=== PATIENT | male | born 1955 | race African-American/Black ===

== ENCOUNTER 2021-05-24 12:36 | Emergency (ER) | payer OTHER ==
--- NOTE | 2021-05-24 13:40 | ER ---
Nurse's Notes [facility] Name: Thaddeus Rivers Age: 66 yrs Sex: Male : 1955 Arrival Date: 05/24/2021 Time: 12:40 Bed 10 Private MD: Diagnosis: Rash and other nonspecific skin eruption Presentation: 05/24 12:50 Chief complaint: Patient states: Rash to both arms for 2 weeks. + itching, spread to ll1 whole body now. No fever. Coronavirus screen: Vaccine status: Patient reports receiving the 2nd dose of the covid vaccine. Client denies travel out of the [place] in the last 14 days. At this time, the client does not indicate any symptoms associated with coronavirus-19. Ebola Screen: Patient denies travel to an Ebola-affected area in the 21 days before illness onset. Initial Sepsis Screen: Does the patient meet any 2 criteria? No. Patient's initial sepsis screen is negative. Does the patient have a suspected source of infection? Yes: Skin breakdown/wound. Risk Assessment: Do you want to hurt yourself or someone else? Patient reports no desire to harm self or others. Onset of symptoms was May 11, 2021. 12:50 Method Of Arrival: Ambulatory ll1 12:50 Acuity: MAXIM 4 ll1 Historical: - Allergies: 12:50 No Known Allergies; ll1 - PMHx: 12:52 Hypertensive disorder; Diabetes mellitus; ll1 - PSHx: 12:52 None; ll1 - Immunization history:: Adult Immunizations up to date, Client reports receiving the 2nd dose of the Covid vaccine. - Social history:: Smoking status: Patient denies any tobacco usage or history of. Screenin:15 Abuse screen: Denies threats or abuse. Nutritional screening: No deficits noted. jg9 Tuberculosis screening: No symptoms or risk factors identified. Fall Risk None identified. Assessment: 13:14 General: Appears in no apparent distress. well groomed, Behavior is calm, cooperative. jg9 Pain: Complains of pain in right arm and left arm Pain does not radiate. Pain currently is 3 out of 10 on a pain scale. Quality of pain is described as burning. Derm: Rash noted that is itchy, raised. Vital Signs: 12:50 Resp 18; Weight 91.63 kg; Height 5 ft. 9 in. (175.26 cm); Pain 0/10; ll1 12:52 BP 143 / 81; Pulse 56; Temp 97.9; Pulse Ox 99% ; ll1 13:21 BP 138 / 78; Pulse 60; Resp 17; Pulse Ox 100% ; jg9 14:03 BP 139 / 70; Pulse 66; Resp 18; Temp 97.8; Pulse Ox 100% on R/A; Pain 3/10; jg9 12:50 Body Mass Index 29.83 (91.63 kg, 175.26 cm) 1 ED Course: 12:40 Patient arrived in ED. mr 12:50 Arm band placed on Patient placed in an exam room, on a stretcher. 1 12:52 Triage completed. 1 12:54 Siva Cochran PA is PHCP. [facility] 12:54 Alex Tejada MD is Attending Physician. [facility] 13:15 Call light in reach. Side rails up X 1. jg9 13:21 No provider procedures requiring assistance completed. jg9 13:21 Patient did not have IV access during this emergency room visit. j9 13:39 Kojo Rowley MD is Referral Physician. [facility] Administered Medications: No medications were administered Outcome: 13:40 Discharge ordered by . [facility] 14:03 Discharged to home ambulatory. jg9 14:03 Condition: good 14:03 Discharge instructions given to patient, Instructed on discharge instructions, follow up and referral plans. Demonstrated understanding of instructions, follow-up care, medications, Prescriptions given X 3. 14:04 Patient left the ED. jg9 Signatures: Siva Cochran PA PA jmm Rivera, Mary mr Lewis, Lynsay, RN RN 1 Flores Montague jg9
--- NOTE | 2021-05-24 13:40 | EDPHYS ---
Physician Documentation [facility] Name: Thaddeus Rivers Age: 66 yrs Sex: Male : 1955 Arrival Date: 05/24/2021 Time: 12:40 Bed 10 Private MD: ED Physician Alex Tejada HPI: 05/24 13:34 This 66 yrs old Black Male presents to ER via Ambulatory with complaints of Skin jmm Problem. 13:34 The patient's rash thought to be caused by an unknown cause. The rash is located on the jmm right arm, left arm, right leg and left leg. Onset: The symptoms/episode began/occurred gradually, 2 week(s) ago. Associated signs and symptoms: Pertinent positives: itching, Pertinent negatives: burning sensation, difficulty breathing, fever, swelling of lips, swelling of throat, swelling of tongue, vomiting, wheezing. The patient has not experienced similar symptoms in the past. States this occurred after performing yard work. Historical: - Allergies: 12:50 No Known Allergies; ll1 - PMHx: 12:52 Hypertensive disorder; Diabetes mellitus; ll1 - PSHx: 12:52 None; ll1 - Immunization history:: Adult Immunizations up to date, Client reports receiving the 2nd dose of the Covid vaccine. - Social history:: Smoking status: Patient denies any tobacco usage or history of. ROS: 13:34 Constitutional: Negative for fever, chills, and weight loss, Cardiovascular: Negative jmm for chest pain, palpitations, and edema, Respiratory: Negative for shortness of breath, cough, wheezing, and pleuritic chest pain. 13:34 Skin: Positive for rash. 13:34 All other systems are negative. Exam: 13:34 Constitutional: This is a well developed, well nourished patient who is awake, alert, jmm and in no acute distress. Head/Face: atraumatic. Eyes: EOMI, no conjunctival erythema appreciated ENT: Moist Mucus Membranes Neck: Trachea midline, Supple Chest/axilla: Normal chest wall appearance and motion. Cardiovascular: Regular rate and rhythm. No edema appreciated Respiratory: Normal respirations, no respiratory distress appreciated Abdomen/GI: Non distended, soft Back: Normal ROM 13:34 Skin: on the right arm, left arm, right leg and left leg. 13:34 Neuro: Orientation: is normal, Mentation: is normal, Memory: is normal. 13:34 Psych: Behavior/mood is pleasant, cooperative. Vital Signs: 12:50 Resp 18; Weight 91.63 kg; Height 5 ft. 9 in. (175.26 cm); Pain 0/10; ll1 12:52 BP 143 / 81; Pulse 56; Temp 97.9; Pulse Ox 99% ; ll1 13:21 BP 138 / 78; Pulse 60; Resp 17; Pulse Ox 100% ; jg9 14:03 BP 139 / 70; Pulse 66; Resp 18; Temp 97.8; Pulse Ox 100% on R/A; Pain 3/10; jg9 12:50 Body Mass Index 29.83 (91.63 kg, 175.26 cm) ll1 MDM: 13:34 Patient medically screened. [facility] 13:39 Data reviewed: vital signs, nurses notes. Counseling: I had a detailed discussion with michi the patient and/or guardian regarding: the historical points, exam findings, and any diagnostic results supporting the discharge/admit diagnosis, the need for outpatient follow up, to return to the emergency department if symptoms worsen or persist or if there are any questions or concerns that arise at home. Administered Medications: No medications were administered Disposition: 05/25 07:04 Co-signature as Attending Physician, Alex Tejada MD I agree with the assessment and rn plan of care. Attestation: The patient's history, exam findings, diagnostics, and a summary of any interventions or procedures was reviewed in detail with Siva PRUITT. Disposition Summary: 05/24/21 13:40 Discharge Ordered Location: Home [facility] Condition: Stable [facility] Diagnosis - Rash and other nonspecific skin eruption [facility] Followup: [facility] - With: Kojo Rowley MD - When: As needed - Reason: Recheck today's complaints, Continuance of care, Re-evaluation by your physician Discharge Instructions: - Discharge Summary Sheet [facility] - Rash, Adult m Forms: - Medication Reconciliation Form [facility] - Thank You Letter [facility] - Antibiotic Education [facility] - Prescription Opioid Use [facility] Prescriptions: - Elimite 5 % Topical Cream - apply 1 application by TOPICAL route one time Wash after 12 hours.; 60 gram; [facility] Refills: 0, Product Selection Permitted - Hydroxyzine HCl 25 mg Oral Tablet - take 1 tablet by ORAL route every 6 hours As needed; 30 tablet; Refills: 0, michim Product Selection Permitted - Triamcinolone Acetonide 0.1 % Topical Ointment - apply 1 application by TOPICAL route every 12 hours As needed; 1 tube; Refills: kathryn 0, Product Selection Permitted Signatures: Siva Cochran PA PA jmm Nieto, Roman, MD MD rn Wilmer Cheng RN RN ll1
[2021-05-24 14:10] VITALS: O2SAT 100
[2021-05-24 14:12] VITALS: BP 139/70; TEMP 97.8
== END 2021-05-24 14:04 | disposition home or self-care (01) ==
LOC: ER 12:36
DX: R21 Rash and other nonspecific skin eruption (principal); I10 Essential (primary) hypertension; E11.9 Type 2 diabetes mellitus without complications
CPT/HCPCS: 99282

== ENCOUNTER 2021-10-30 16:18 | Emergency (ER) | payer OTHER ==
--- OUTSIDE RECORDS SUMMARY | 2021-10-30 16:28 | XMS REPORT | Continuity of Care Document ---
:1955 Author Organization [facility] t Address [address] [place] [address] [address] [place] [address] Care Team Providers Name Role Phone VASILIY Attending Clinician Unavailable Problems This patient has no known problems. Allergies, Adverse Reactions, Alerts This patient has no known allergies or adverse reactions. Medications This patient has no known medications. Procedures This patient has no known procedures. Encounters Start End Encounter Admission Attending Care Care Encounter Source Date/Time Date/Time Type Type Clinicians Facility Department ID 2021-07-17 Outpatient VASILIY [facility] [id number] NPI:[id number] 14:02:04 [facility] [id number] 2021-07-10 2021-07-10 ambulatory [facility] [id number] NPI:[id number] 00:00:00 00:00:00 [id number] 2021-04-09 2021-04-09 Outpatient [facility] [id number] NPI:[id number] 00:00:00 00:00:00 [id number] Results This patient has no known results.
--- NOTE | 2021-10-30 16:32 | EDPHYS ---
Physician Documentation [facility] Name: Thaddeus Rivers Age: 66 yrs Sex: Male : 1955 Arrival Date: 10/30/2021 Time: 16:20 Bed 10 Private MD: ED Physician Roderick Moody HPI: 10/30 16:33 This 66 yrs old Black Male presents to ER via Ambulatory with complaints of Rash. ms3 16:33 The patient's rash thought to be caused by Eczema. The rash is located on the body ms3 diffusely. The rash can be described as papular. Onset: The symptoms/episode began/occurred 2 day(s) ago. Associated signs and symptoms: Pertinent positives: itching, Pertinent negatives: Pain. Severity of symptoms: Pain is currently a 0 / 10. Treatment given at home: None. Historical: - Allergies: 16:26 No Known Allergies; jl7 - PMHx: 16:26 diabetes mellitus; Hypertensive disorder; jl7 - Immunization history:: Adult Immunizations unknown. - Social history:: Smoking status: unknown. ROS: 16:33 Constitutional: Negative for fever, and chills. Neck: Negative for injury, pain, and ms3 swelling, Cardiovascular: Negative for chest pain, and palpitations. Respiratory: Negative for shortness of breath, cough, wheezing, and pleuritic chest pain, Abdomen/GI: Negative for abdominal pain, nausea, vomiting, diarrhea, and constipation, MS/Extremity: Negative for injury and deformity, Neuro: Negative for headache, weakness, numbness, tingling. 16:33 Skin: Positive for rash, diffusely. Exam: 16:33 Constitutional: This is a well developed, well nourished patient who is awake, alert, ms3 and in no acute distress. Head/Face: Normocephalic, atraumatic. Neck: Trachea midline, no cervical lymphadenopathy. Supple, full range of motion without nuchal rigidity, or vertebral point tenderness. No Meningismus. Chest/axilla: Normal chest wall appearance and motion. Nontender with no deformity. Cardiovascular: Regular rate and rhythm with a normal S1 and S2. No gallops, murmurs, or rubs. Normal PMI, no JVD. No pulse deficits. Respiratory: Lungs have equal breath sounds bilaterally, clear to auscultation and percussion. No rales, rhonchi or wheezes noted. No increased work of breathing, no retractions or nasal flaring. Abdomen/GI: Soft, non-tender, with normal bowel sounds. No distension or tympany. No guarding or rebound. No evidence of tenderness throughout. Psych: Awake, alert, with orientation to person, place and time. Behavior, mood, and affect are within normal limits. 16:33 Skin: rash a moderate rash is noted, rash can be described as Micropapular. Vital Signs: 16:25 BP 143 / 104; Pulse 85; Resp 17; Temp 98.7; Pulse Ox 100% ; jl7 16:29 BP 139 / 99; Pulse 86; Resp 18; Pulse Ox 100% on R/A; Pain 6/10; ld1 MDM: 16:22 Patient medically screened. ms3 16:33 Data reviewed: vital signs, nurses notes. Data interpreted: Pulse oximetry: on room air ms3 is 100 %. Interpretation: normal. Counseling: I had a detailed discussion with the patient and/or guardian regarding: the historical points, exam findings, and any diagnostic results supporting the discharge/admit diagnosis, the need for outpatient follow up. ED course: Discussed physical exam findings with patient. Patient to follow-up with in 2 to 3 days. Patient understands and agrees with plan. All questions were answered. Return precautions discussed include worsening symptoms, or any other concerns. On reevaluation patient symptoms improved, patient is alert and oriented x4, no apparent distress, nontoxic, ambulatory in emergency department, tolerating p.o. . Administered Medications: 16:33 Drug: predniSONE 60 mg Route: PO; ld1 Disposition Summary: 10/30/21 16:32 Discharge Ordered Location: Home ms3 Condition: Stable ms3 Diagnosis - Rash and other nonspecific skin eruption ms3 Followup: ms3 - With: Gideon Hunter MD - When: 2 - 3 days - Reason: Re-evaluation by your physician Discharge Instructions: - Discharge Summary Sheet ms3 - Rash, Adult ms3 Forms: - Medication Reconciliation Form ms3 - Thank You Letter ms3 - Antibiotic Education ms3 - Prescription Opioid Use ms3 Prescriptions: - Prednisone 20 mg Oral Tablet - take 2 tablets by ORAL route once daily for 5 days; 10 tablet; Refills: 0, ms3 Product Selection Permitted Signatures: Donato Ramirez RN RN jl7 Roderick Moody, DO VILA ms3 Shaylee Stevens, RN RN ld1
--- NOTE | 2021-10-30 16:32 | ER ---
Nurse's Notes [facility] Name: Thaddeus Rivers Age: 66 yrs Sex: Male : 1955 Arrival Date: 10/30/2021 Time: 16:20 Bed 10 Private MD: Diagnosis: Rash and other nonspecific skin eruption Presentation: 10/30 16:25 Chief complaint: Patient states: Rash to face and bilateral wrist x 2 days. Coronavirus jl7 screen: At this time, the client does not indicate any symptoms associated with coronavirus-19. Ebola Screen: No symptoms or risks identified at this time. Initial Sepsis Screen: Does the patient meet any 2 criteria? No. Patient's initial sepsis screen is negative. Does the patient have a suspected source of infection? No. Patient's initial sepsis screen is negative. Risk Assessment: Do you want to hurt yourself or someone else? Patient reports no desire to harm self or others. Onset of symptoms was October 28, 2021. 16:25 Method Of Arrival: Ambulatory jl7 16:25 Acuity: MAXIM 4 jl7 Triage Assessment: 16:26 General: Appears in no apparent distress. uncomfortable, Behavior is calm, cooperative, jl7 appropriate for age. Pain: Denies pain. Historical: - Allergies: 16:26 No Known Allergies; jl7 - PMHx: 16:26 diabetes mellitus; Hypertensive disorder; jl7 - Immunization history:: Adult Immunizations unknown. - Social history:: Smoking status: unknown. Screenin:29 Abuse screen: Denies threats or abuse. Denies injuries from another. Nutritional ld1 screening: No deficits noted. Tuberculosis screening: No symptoms or risk factors identified. Fall Risk None identified. Sepsis Screening:. Assessment: 16:29 General: Appears in no apparent distress. comfortable, Behavior is calm, cooperative, ld1 appropriate for age. Pain: Complains of pain in face, right hand and left hand Pain does not radiate. Pain currently is 6 out of 10 on a pain scale. Neuro: Level of Consciousness is awake, alert, obeys commands, Oriented to person, place, time, situation. Cardiovascular: Capillary refill < 3 seconds Patient's skin is warm and dry. Respiratory: Airway is patent Respiratory effort is even, unlabored. GI: Abdomen is flat, non-distended. : No signs and/or symptoms were reported regarding the genitourinary system. EENT: No signs and/or symptoms were reported regarding the EENT system. Derm: Rash noted that is red, on face, right hand and left hand. Musculoskeletal: No signs and/or symptoms reported regarding the musculoskeletal system. Vital Signs: 16:25 BP 143 / 104; Pulse 85; Resp 17; Temp 98.7; Pulse Ox 100% ; jl7 16:29 BP 139 / 99; Pulse 86; Resp 18; Pulse Ox 100% on R/A; Pain 6/10; ld1 ED Course: 16:20 Patient arrived in ED. mr 16:21 Roderick Moody DO is Attending Physician. ms3 16:26 Triage completed. jl7 16:26 Arm band placed on right wrist. jl7 16:29 Shaylee Stevens, RN is Primary Nurse. ld1 16:29 Patient has correct armband on for positive identification. Bed in low position. Call ld1 light in reach. Side rails up X2. Pulse ox on. NIBP on. Door closed. Noise minimized. Warm blanket given. 16:29 No provider procedures requiring assistance completed. ld1 16:31 Gideon Hunter MD is Referral Physician. ms3 16:33 Patient did not have IV access during this emergency room visit. ld1 Administered Medications: 16:33 Drug: predniSONE 60 mg Route: PO; ld1 Medication: 16:29 VIS not applicable for this client. ld1 Outcome: 16:32 Discharge ordered by . ms3 16:33 Discharged to home ambulatory. ld1 16:33 Condition: stable 16:33 Discharge instructions given to patient, Instructed on discharge instructions, follow up and referral plans. Demonstrated understanding of instructions, follow-up care. 16:36 Patient left the ED. ld1 Signatures: Yara Arevalo mr RamirezDonato RN RN jl7 Roderick Moody DO DO ms3 Shaylee Stevens, PHILLIP RN ld1
[2021-10-30] MEDS ORDERED: predniSONE 20 MG TAB ONE (16:36)
[2021-10-30 17:13] VITALS: TEMP 98.7; O2SAT 100
[2021-10-30 17:24] VITALS: BP 139/99
== END 2021-10-30 16:36 | disposition home or self-care (01) ==
LOC: ER 16:18
DX: R21 Rash and other nonspecific skin eruption (principal); E11.9 Type 2 diabetes mellitus without complications; I10 Essential (primary) hypertension
CPT/HCPCS: 99283; J7512

== ENCOUNTER 2021-11-07 15:09 | Emergency (ER) | payer OTHER ==
--- OUTSIDE RECORDS SUMMARY | 2021-11-07 15:11 | XMS REPORT | Continuity of Care Document ---
:1955 Author Organization [facility] t Address [address] [place] [address] Care Team Providers Name Role Phone VASILIY [...] Type Clinicians Facility Department ID 2021-07-17 Outpatient AMANDA, [facility] [id number] Common 14:02:04 [facility] [id number] [facility] 2021-07-10 2021-07-10 ambulatory [facility] [id number] Common 00:00:00 00:00:00 [facility] 2021-04-09 2021-04-09 Outpatient [facility] [id number] Common 00:00:00 00:00:00 [facility] 2018-12-30 2018-12-30 Outpatient [facility] [id number] [place] 00:00:00 00:00:00 Health 2018-12-27 2018-12-27 Outpatient [facility] [id number] [place] 00:00:00 00:00:00 Health 2018-09-09 2018-09-09 Emergency [facility] [id number] [place] 01:41:00 01:41:00 Health 2018-07-15 2018-07-15 Emergency [facility] [id number] [place] 02:48:03 02:48:03 Health Results This patient has no known results.
[2021-11-07] MEDS ORDERED: dexAMETHasone 10 MG/ML VIAL ONE (15:36)
--- NOTE | 2021-11-07 15:55 | ER ---
Nurse's Notes [facility] Name: Thaddeus Rivers Age: 66 yrs Sex: Male : 1955 Arrival Date: 11/07/2021 Time: 15:10 Bed 10 Private MD: Will Caro Diagnosis: Atopic dermatitis, unspecified Presentation: 11/07 15:23 Chief complaint: Patient states: Rash to hand, arm, face. Coronavirus screen: At this ld1 time, the client does not indicate any symptoms associated with coronavirus-19. Ebola Screen: No symptoms or risks identified at this time. Initial Sepsis Screen: Does the patient meet any 2 criteria? No. Patient's initial sepsis screen is negative. Does the patient have a suspected source of infection? No. Patient's initial sepsis screen is negative. Risk Assessment: Do you want to hurt yourself or someone else? Patient reports no desire to harm self or others. Onset of symptoms was November 07, 2021. 15:23 Method Of Arrival: Ambulatory ld1 15:23 Acuity: MAXIM 4 ld1 Triage Assessment: 15:24 General: Appears in no apparent distress. comfortable, Behavior is calm, cooperative, ld1 appropriate for age. Pain: Denies pain. Neuro: Level of Consciousness is awake, alert, obeys commands, Oriented to person, place, time, situation. Respiratory: Airway is patent Respiratory effort is even, unlabored. Derm: Rash noted that is. Historical: - Allergies: 15:24 No Known Allergies; ld1 - Home Meds: 15:24 unknown [Active]; ld1 - PMHx: 15:24 diabetes mellitus; Hypertensive disorder; ld1 - PSHx: 15:24 None; ld1 - Immunization history:: Adult Immunizations up to date, Client reports receiving the 2nd dose of the Covid vaccine. - Social history:: Smoking status: Patient denies any tobacco usage or history of. Patient uses alcohol, admits to "couple of beers" a day. Screenin:38 Abuse screen: Denies threats or abuse. Denies injuries from another. Nutritional ld1 screening: No deficits noted. Tuberculosis screening: No symptoms or risk factors identified. Fall Risk None identified. Assessment: 15:38 Reassessment: see triage assessment. ld1 Vital Signs: 15:23 BP 114 / 93; Pulse 74; Resp 18; Temp 97.6; Pulse Ox 100% on R/A; Weight 92.53 kg; ld1 Height 5 ft. 9 in. (175.26 cm); Pain 0/10; 15:23 Body Mass Index 30.13 (92.53 kg, 175.26 cm) ld1 ED Course: 15:10 Patient arrived in ED. am2 15:10 Will Caro DO is Private Physician. am2 15:20 [facility] jh7 15:20 Francis Sidhu MD is Attending Physician. jh7 15:24 Triage completed. ld1 15:24 Arm band placed on right wrist. ld1 15:38 Shaylee Stevens, RN is Primary Nurse. ld1 15:38 Patient has correct armband on for positive identification. Placed in gown. Bed in low ld1 position. Call light in reach. Side rails up X2. Pulse ox on. NIBP on. Door closed. Noise minimized. Warm blanket given. 15:38 No provider procedures requiring assistance completed. Patient did not have IV access ld1 during this emergency room visit. Administered Medications: 15:37 Drug: Decadron (dexamethasone) 10 mg Route: IM; Site: left deltoid; ld1 16:00 Follow up: Response: No adverse reaction iw Medication: 15:38 VIS not applicable for this client. ld1 Outcome: 15:54 Discharge ordered by . [facility] emergency room 16:02 Discharged to home ambulatory. iw 16:02 Condition: good 16:02 Discharge instructions given to patient, Instructed on discharge instructions, follow up and referral plans. medication usage, Demonstrated understanding of instructions, follow-up care, medications, Prescriptions given X 1. 16:02 Patient left the ED. iw Signatures: Bonnie Harrington, RN RN Luz Aguirre am2 Shaylee Stevens, PHILLIP RN 1 Flores Carrillo FNP FNP [facility] emergency room
--- NOTE | 2021-11-07 15:55 | EDPHYS ---
Physician Documentation [facility] Name: Thaddeus Rivers Age: 66 yrs Sex: Male : 1955 Arrival Date: 11/07/2021 Time: 15:10 Bed 10 Private MD: Gordo [facility] ED Physician Francis Sidhu HPI: 11/07 15:30 This 66 yrs old Black Male presents to ER via Ambulatory with complaints of Rash. [facility] 15:30 The patient's rash thought to be caused by Eczema. 66-year-old male presents for rash jh7 for 1 week. States that he has a history of eczema, and that he saw dermatology about it a week ago. States that he was only given 20 mg of prednisone, that it is not helped the symptoms. Reports that he would like a shot to help with his itching.. Historical: - Allergies: 15:24 No Known Allergies; ld1 - Home Meds: 15:24 unknown [Active]; ld1 - PMHx: 15:24 diabetes mellitus; Hypertensive disorder; ld1 - PSHx: 15:24 None; ld1 - Immunization history:: Adult Immunizations up to date, Client reports receiving the 2nd dose of the Covid vaccine. - Social history:: Smoking status: Patient denies any tobacco usage or history of. Patient uses alcohol, admits to "couple of beers" a day. ROS: 15:30 Constitutional: Negative for fever, chills, and weight loss, Cardiovascular: Negative [facility] for chest pain, palpitations, and edema, Respiratory: Negative for shortness of breath, cough, wheezing, and pleuritic chest pain, Neuro: Negative for headache, weakness, numbness, tingling, and seizure. 15:30 Skin: Positive for rash, Negative for cellulitis, erythema, swelling. 15:30 All other systems are negative. Exam: 15:30 Constitutional: This is a well developed, well nourished patient who is awake, alert, jh7 and in no acute distress. Cardiovascular: Regular rate and rhythm with a normal S1 and S2. No gallops, murmurs, or rubs. Normal PMI, no JVD. No pulse deficits. Respiratory: Lungs have equal breath sounds bilaterally, clear to auscultation and percussion. No rales, rhonchi or wheezes noted. No increased work of breathing, no retractions or nasal flaring. 15:30 Neck: Trachea midline, no thyromegaly or masses palpated, and no cervical lymphadenopathy. Supple, full range of motion without nuchal rigidity, or vertebral point tenderness. No Meningismus. Neuro: Awake and alert, GCS 15, oriented to person, place, time, and situation. Sensory grossly intact. Cerebellar exam normal. Normal gait. 15:30 Skin: eczema, on the face, back, right hand and left hand. Vital Signs: 15:23 BP 114 / 93; Pulse 74; Resp 18; Temp 97.6; Pulse Ox 100% on R/A; Weight 92.53 kg; ld1 Height 5 ft. 9 in. (175.26 cm); Pain 0/10; 15:23 Body Mass Index 30.13 (92.53 kg, 175.26 cm) ld1 MDM: 15:27 Patient medically screened. [facility] 15:30 Differential diagnosis: Eczema. Data reviewed: vital signs, nurses notes. Data [facility] interpreted: Pulse oximetry: is 100 %. Interpretation: normal. Counseling: I had a detailed discussion with the patient and/or guardian regarding: the historical points, exam findings, and any diagnostic results supporting the discharge/admit diagnosis, to return to the emergency department if symptoms worsen or persist or if there are any questions or concerns that arise at home. Response to treatment: the patient's symptoms have markedly improved after treatment. ED course: The patient remained stable throughout the ER visit. He responded well to the Decadron, and agreed that he was ready to be discharged. He was advised to follow-up with dermatology if symptoms persist. The patient understood the plan of care.. Administered Medications: 15:37 Drug: Decadron (dexamethasone) 10 mg Route: IM; Site: left deltoid; ld1 16:00 Follow up: Response: No adverse reaction iw Disposition Summary: 11/07/21 15:54 Discharge Ordered Location: Home [facility] Problem: new [facility] Symptoms: have improved [facility] Condition: Stable [facility] Diagnosis - Atopic dermatitis, unspecified jh7 Followup: [facility] - With: Private Physician - When: 2 - 3 days - Reason: Recheck today's complaints Discharge Instructions: - Discharge Summary Sheet 7 - Eczema 7 - Rash, Adult 7 Forms: - Medication Reconciliation Form 7 - Thank You Letter 7 Prescriptions: - Medrol (Guicho) 4 mg Oral Tablets, Dose Pack - take 1 tablet by ORAL route as directed - follow package instructions; 1 [facility] packet; Refills: 0, Product Selection Permitted Signatures: Francis Sidhu MD MD cha Dibbern, Lauren, RN RN ld1 Flores Carrillo, SHIRT IRONER SUPERVISOR SHIRT IRONER SUPERVISOR jh7 Bonnie Harrington RN iw
[2021-11-07 17:12] VITALS: BP 114/93; TEMP 97.6; O2SAT 100
== END 2021-11-07 16:02 | disposition home or self-care (01) ==
LOC: ER 15:09
DX: L20.9 Atopic dermatitis, unspecified (principal); E11.9 Type 2 diabetes mellitus without complications; I10 Essential (primary) hypertension
CPT/HCPCS: 96372; 99283; J1100

== ENCOUNTER 2021-12-10 09:08 | Emergency (ER) | payer OTHER ==
--- OUTSIDE RECORDS SUMMARY | 2021-12-10 09:11 | XMS REPORT | Continuity of Care Document ---
:1955 Author Organization [facility] t Address [address] [place] [address] Care Team Providers Name Role Phone AMANDA Attending Clinician Unavailable Problems This patient has no known problems. Allergies, Adverse Reactions, Alerts This patient has no known allergies or adverse reactions. Medications This patient has no known medications. Procedures This patient has no known procedures. Encounters Start End Encounter Admission Attending Care Care Encounter Source Date/Time Date/Time Type Type Clinicians Facility Department ID 2021-07-17 Outpatient AMANDA, STLMLC STLC [id number] Common 14:02:04 [facility] [id number] [facility] 2021-11-15 2021-11-15 ambulatory STLMLC STLMLC [id number] Common 00:00:00 00:00:00 [facility] 2021-07-10 2021-07-10 ambulatory STLMLC STLMLC [id number] Common 00:00:00 00:00:00 [facility] 2021-04-09 2021-04-09 Outpatient STLMLC STLMLC [id number] Common 00:00:00 00:00:00 [facility] 2018-12-30 2018-12-30 Outpatient [facility] [id number] [address] [place] [address] 00:00:00 00:00:00 [facility] 2018-12-27 2018-12-27 Outpatient [facility] [id number] [address] [place] [address] 00:00:00 00:00:00 [facility] 2018-09-09 2018-09-09 Emergency [facility] [id number] [address] [place] [address] 01:41:00 01:41:00 [facility] 2018-07-15 2018-07-15 Emergency [facility] [id number] [address] 02:48:03 02:48:03 Health Results This patient has no known results.
--- NOTE | 2021-12-10 09:28 | EDPHYS ---
Physician Documentation [facility] Name: Thaddeus Rivers Age: 66 yrs Sex: Male : 1955 Arrival Date: 12/10/2021 Time: 09:09 Bed 5 Private MD: Gordo [facility] ED Physician Francis Sidhu HPI: 12/10 09:20 This 66 yrs old Black Male presents to ER via Ambulatory with complaints of Rash - back.jh7 09:20 The patient's rash thought to be caused by Dermatitis. The rash is located on the back jh7 and left arm and right arm. The rash can be described as macular, papular. 10:07 Onset: The symptoms/episode began/occurred yesterday. Patient complain of pruritic rash jh7 to bilateral arms and back [place] States that the rash began yesterday. Denies any other symptoms.. Historical: - Allergies: 09:18 No Known Allergies; vg1 - Home Meds: 09:18 Unknown BP medication [Active]; vg1 - PMHx: 09:18 diabetes mellitus; Hypertensive disorder; vg1 - Immunization history:: Client reports receiving the 2nd dose of the Covid vaccine. - Social history:: Smoking status: Patient denies any tobacco usage or history of. ROS: 10:07 Constitutional: Negative for fever, chills, and weight loss, ENT: Negative for injury, jh7 pain, and discharge, Neck: Negative for injury, pain, and swelling, Cardiovascular: Negative for chest pain, palpitations, and edema, Respiratory: Negative for shortness of breath, cough, wheezing, and pleuritic chest pain, Abdomen/GI: Negative for abdominal pain, nausea, vomiting, diarrhea, and constipation, Back: Negative for injury and pain. 10:07 Neuro: Negative for headache, weakness, numbness, tingling, and seizure. 10:07 Skin: Positive for rash, Negative for abrasions, cellulitis, laceration(s). 10:07 All other systems are negative. Exam: 10:07 Constitutional: This is a well developed, well nourished patient who is awake, alert, jh7 and in no acute distress. ENT: Nares patent. No nasal discharge, no septal abnormalities noted. Oropharynx with no redness, swelling, or masses, exudates, or evidence of obstruction, uvula midline. Mucous membranes moist. Cardiovascular: Regular rate and rhythm with a normal S1 and S2. No gallops, murmurs, or rubs. Normal PMI, no JVD. No pulse deficits. Respiratory: Lungs have equal breath sounds bilaterally, clear to auscultation and percussion. No rales, rhonchi or wheezes noted. No increased work of breathing, no retractions or nasal flaring. Abdomen/GI: Soft, non-tender, with normal bowel sounds. No distension or tympany. No guarding or rebound. No evidence of tenderness throughout. Back: No spinal tenderness. No costovertebral tenderness. Full range of motion. Neuro: Awake and alert, GCS 15, oriented to person, place, time, and situation. Motor strength 5/5 in all extremities. Sensory grossly intact. Normal gait. 10:07 Skin: contact dermatitis, on the back and left arm and right arm. Vital Signs: 09:17 BP 139 / 101; Pulse 70; Resp 16; Temp 98.2(TE); Pulse Ox 100% ; Weight 95.25 kg; Height vg1 5 ft. 9 in. (175.26 cm); Pain 5/10; 09:17 Body Mass Index 31.01 (95.25 kg, 175.26 cm) vg1 MDM: 09:20 Patient medically screened. [facility] 10:07 Differential diagnosis: Contact dermatitis. Data reviewed: vital signs, nurses notes. [facility] Data interpreted: Pulse oximetry: is 100 %. Interpretation: normal. Counseling: I had a detailed discussion with the patient and/or guardian regarding: the historical points, exam findings, and any diagnostic results supporting the discharge/admit diagnosis, to return to the emergency department if symptoms worsen or persist or if there are any questions or concerns that arise at home. ED course: Patient given Decadron in the ED. Advised to avoid further contact with poison lori and take medication as directed. Advised to monitor blood glucose levels closely due to steroids potentially increasing blood glucose. Return to the ER as needed.. Administered Medications: 09:34 Drug: Decadron (dexamethasone) 10 mg Route: IM; Site: left deltoid; jl7 09:54 Follow up: Response: No adverse reaction [facility] Disposition Summary: 12/10/21 09:27 Discharge Ordered Location: Home jh7 Problem: new [facility] Symptoms: are unchanged [facility] Condition: Stable 7 Diagnosis - Allergic contact dermatitis due to plants, except food 7 Followup: [facility] - With: Private Physician - When: 2 - 3 days - Reason: Recheck today's complaints Discharge Instructions: - Discharge Summary Sheet [facility] - Contact Dermatitis 7 - Poison Lori Dermatitis [facility] Forms: - Medication Reconciliation Form [facility] - Thank You Letter [facility] Prescriptions: - Hydroxyzine HCl 25 mg Oral Tablet - take 1 tablet by ORAL route every 6 hours As needed; 30 tablet; Refills: 0, jh7 Product Selection Permitted - Prednisone 20 mg Oral Tablet - take 2 tablets by ORAL route once daily for 5 days; 10 tablet; Refills: 0, jh7 Product Selection Permitted Signatures: Donato Ramirez RN RN jl7 Jennifer Corona RN RN vg1 Flores Carrillo, CERTIFIED SURGICAL TECHNICIAN CERTIFIED SURGICAL TECHNICIAN [facility]
--- NOTE | 2021-12-10 09:28 | ER ---
Nurse's Notes [facility] Name: Thaddeus Rivers Age: 66 yrs Sex: Male : 1955 Arrival Date: 12/10/2021 Time: 09:09 Bed 5 Private MD: Will Caro Diagnosis: Allergic contact dermatitis due to plants, except food Presentation: 12/10 09:17 Chief complaint: Patient states: Noticed rash yesterday to FEL[place] arms and upper back, vg1 states burning and pain. Coronavirus screen: Vaccine status: Patient reports receiving the 2nd dose of the covid vaccine. Client denies travel out of the [place] in the last 14 days. Ebola Screen: Patient denies exposure to infectious person. Patient denies travel to an Ebola-affected area in the 21 days before illness onset. Initial Sepsis Screen: Does the patient meet any 2 criteria? No. Patient's initial sepsis screen is negative. Does the patient have a suspected source of infection? No. Patient's initial sepsis screen is negative. Risk Assessment: Do you want to hurt yourself or someone else? Patient reports no desire to harm self or others. Onset of symptoms was December 09, 2021. 09:17 Method Of Arrival: Ambulatory vg1 09:17 Acuity: MAXIM 4 vg1 Triage Assessment: 09:18 General: Appears uncomfortable, Behavior is calm, cooperative. Pain: Complains of pain vg1 in chest, right arm and left arm Pain currently is 5 out of 10 on a pain scale. Derm: Skin is dry. Historical: - Allergies: 09:18 No Known Allergies; vg1 - Home Meds: 09:18 Unknown BP medication [Active]; vg1 - PMHx: 09:18 diabetes mellitus; Hypertensive disorder; vg1 - Immunization history:: Client reports receiving the 2nd dose of the Covid vaccine. - Social history:: Smoking status: Patient denies any tobacco usage or history of. Screenin:30 Abuse screen: Denies threats or abuse. Denies injuries from another. Nutritional jl7 screening: No deficits noted. Tuberculosis screening: No symptoms or risk factors identified. Fall Risk None identified. Assessment: 09:30 General: Appears in no apparent distress. uncomfortable, Behavior is calm, cooperative, jl7 appropriate for age. Pain: Complains of pain in Upper back Pain currently is 5 out of 10 on a pain scale. Neuro: Level of Consciousness is awake, alert, obeys commands, Oriented to person, place, time, situation. Cardiovascular: Patient's skin is warm and dry. Respiratory: Airway is patent Respiratory effort is even, unlabored, Respiratory pattern is regular, symmetrical. Derm: Skin is dry, Skin is normal, Skin temperature is warm Reports burning, pain that is 5 out of 10 on a pain scale. Vital Signs: 09:17 BP 139 / 101; Pulse 70; Resp 16; Temp 98.2(TE); Pulse Ox 100% ; Weight 95.25 kg; Height vg1 5 ft. 9 in. (175.26 cm); Pain 5/10; 09:17 Body Mass Index 31.01 (95.25 kg, 175.26 cm) 1 ED Course: 09:09 Patient arrived in ED. am2 09:10 Will Caro DO is Private Physician. am2 09:10 Flores Carrillo [facility] 7 09:10 Francis Sidhu MD is Attending Physician. 7 09:18 Triage completed. vg1 09:18 Arm band placed on. vg1 09:21 Donato Ramirez RN is Primary Nurse. jl7 09:30 Patient has correct armband on for positive identification. Bed in low position. Call jl7 light in reach. Side rails up X 1. Pulse ox on. NIBP on. 09:38 No provider procedures requiring assistance completed. Patient did not have IV access jl7 during this emergency room visit. Administered Medications: 09:34 Drug: Decadron (dexamethasone) 10 mg Route: IM; Site: left deltoid; 7 09:54 Follow up: Response: No adverse reaction jl7 Medication: 09:30 VIS not applicable for this client. jl7 Outcome: 09:27 Discharge ordered by . 7 09:54 Discharged to home ambulatory. jl7 09:54 Condition: stable 09:54 Discharge instructions given to patient, Instructed on discharge instructions, follow up and referral plans. medication usage, Demonstrated understanding of instructions, follow-up care, medications, Prescriptions given X 2. 09:54 Patient left the ED. 7 Signatures: Donato Ramirez RN RN jl7 Luz Aguirre 2 Jennifer Corona RN RN vg1 Hadash, Flores, INSURANCE ADJUSTER INSURANCE ADJUSTER jh7
[2021-12-10] MEDS ORDERED: dexAMETHasone 10 MG/ML VIAL ONE (09:36)
[2021-12-10 09:59] VITALS: BP 139/101; TEMP 98.2; O2SAT 100
== END 2021-12-10 09:54 | disposition home or self-care (01) ==
LOC: ER 09:08
DX: L23.7 Allergic contact dermatitis due to plants, except food (principal); I10 Essential (primary) hypertension
CPT/HCPCS: 96372; 99283; J1100

== ENCOUNTER 2022-02-03 13:37 | Emergency (ER) | payer OTHER ==
--- OUTSIDE RECORDS SUMMARY | 2022-02-03 13:40 | XMS REPORT | Continuity of Care Document ---
:1955 Author Organization [facility] t Address [address] [place] [address] Care Team Providers Name Role Phone VASILYISOBIAH Attending Clinician Unavailable Problems This patient has no known problems. Allergies, Adverse Reactions, Alerts This patient has no known allergies or adverse reactions. Medications This patient has no known medications. Procedures This patient has no known procedures. Encounters Start End Encounter Admission Attending Care Care Encounter Source Date/Time Date/Time Type Type Clinicians Facility Department ID 2021-07-17 Outpatient VASILIY STLMLC STLMLC [id number] Common 14:02:04 [facility] [id number] [facility] 2022-01-03 2022-01-03 ambulatory STLMLC STLMLC [id number] Common 00:00:00 00:00:00 [facility] 2021-11-15 2021-11-15 ambulatory STLMLC STLMLC [id number] Common 00:00:00 00:00:00 [facility] 2021-07-10 2021-07-10 ambulatory STLMLC STLMLC [id number] Common 00:00:00 00:00:00 [facility] 2021-04-09 2021-04-09 Outpatient STLMLC STLMLC [id number] Common 00:00:00 00:00:00 [facility] 2018-12-30 2018-12-30 Outpatient [facility] [id number] [address] [place] [address] 00:00:00 00:00:00 Health 2018-12-27 2018-12-27 Outpatient [facility] [id number] [address] [place] 00:00:00 00:00:00 [facility] 2018-09-09 2018-09-09 Emergency [facility] MED [id number] [address] [facility] 01:41:00 01:41:00 [facility] 2018-07-15 2018-07-15 Emergency [facility] MED [id number] 2 [facility] 02:48:03 02:48:03 Health Results This patient has no known results.
--- NOTE | 2022-02-03 14:07 | RAD REPORT ---
EXAM DESCRIPTION: CT - Ct Stroke Brain Wo Cont - 02/03/2022 1:59 pm CLINICAL HISTORY: Slurred speech COMPARISON: none TECHNIQUE: Computed axial tomography of the head was obtained. All CT scans are performed using dose optimization technique as appropriate and may include automated exposure control or mA/KV adjustment according to patient size. FINDINGS: An intracranial bleed is not seen . The ventricles are normal in caliber. No extra-axial fluid collection is noted. Mild to moderate low-density within periventricular, deep and subcortical white matter likely ischemi c changes secondary to small vessel disease Fluid within the sinuses/ mastoids is not seen. IMPRESSION: No acute intracranial abnormality is seen. If patient's symptoms persist MRI of the bra in would be recommended. Francis Page of the emergency room was notified at 2 PM February 03, 2022
[2022-02-03] MEDS ORDERED: TENECTEPLASE 50 MG/10 ML VIAL IV ONE (14:26)
[2022-02-03 14:46] LABS: Absolute Lymphocytes (CBC) 1.9 K/uL (0.7-4.9); Hematocrit 40.3 % (39.6-49.0); Lymphocytes % 19.9 % (15.3-44.8); MCV 80.7 fL (80-100); RBC Red Blood Cell Count 4.99 M/uL (4.33-5.43)
[2022-02-03 14:49] LABS: Protime INR 1.17
--- NOTE | 2022-02-03 14:56 | RAD REPORT ---
EXAM DESCRIPTION: [facility] Single View02/03/2022 2:50 pm CLINICAL HISTORY: Difficulty speaking COMPARISON: none FINDINGS: The lungs appear clear of acute infiltrate. The heart is normal size IMPRESSION: No acute abnormalities displayed
[2022-02-03 15:10] LABS: Potassium 4.2 mmol/L (3.5-5.1)
[2022-02-03] MEDS ORDERED: dilTIAZem HCL 25 MG/5 ML VIAL IV ONE (15:30)
--- NOTE | 2022-02-03 15:36 | EDPHYS ---
Physician Documentation [facility] Name: Thaddeus Rivers Age: 67 yrs Sex: Male : 1955 Arrival Date: 02/03/2022 Time: 13:38 Bed 26 Private MD: ED Physician Roderick Moody HPI: 02/03 15:03 This 67 yrs old Black Male presents to ER via Ambulatory with complaints of S/S of ms3 Possible Stroke. 15:03 The patient's problem is reported as a facial droop, on left, dysphasia, slurred speech.ms3 15:11 Onset: The symptoms/episode began/occurred Began at 1:30 PM . Duration: The episode is ms3 continuous. Context: occurred at home. The symptoms are alleviated by nothing. The symptoms are aggravated by nothing. Associated signs and symptoms: Pertinent negatives: abdominal pain, blurred vision, chest pain, confusion, headache, lightheadedness, nausea, shortness of breath. Severity of symptoms: At their worst the symptoms were moderate in the emergency department the symptoms are unchanged Pain is currently a 0 / 10. Patient's baseline: Neuro: alert and fully oriented, Motor: no deficits, Ambulation: walks without assistance, Speech: normal, The patient has a previous history of. Historical: - Allergies: 14:09 No Known Allergies; ld1 - Home Meds: 15:19 lisinopril 20 mg Oral tab 1 tab once daily [Active]; glipizide 10 mg Oral tab 1 tab 2 ld1 times per day [Active]; metformin 500 mg Oral tab 1 tab 2 times per day [Active]; Rhopressa [Active]; potassium chloride 20 mEq Oral TbER 1 tab once daily [Active]; - PMHx: 14:09 diabetes mellitus; Hypertensive disorder; ld1 - PSHx: 14:09 None; ld1 - Immunization history:: Adult Immunizations up to date, Client reports receiving the 2nd dose of the Covid vaccine. - Social history:: Smoking status: Patient denies any tobacco usage or history of. Patient/guardian denies using alcohol. ROS: 15:11 Constitutional: Negative for fever, and chills. Neck: Negative for injury, pain, and ms3 swelling, Cardiovascular: Negative for chest pain, and palpitations. Respiratory: Negative for shortness of breath, cough, wheezing, and pleuritic chest pain, Abdomen/GI: Negative for abdominal pain, nausea, vomiting, diarrhea, and constipation, MS/Extremity: Negative for injury and deformity, Skin: Negative for injury, rash, and discoloration. 15:11 Neuro: Positive for Negative for seizure activity, weakness. 15:11 All other systems are negative. Exam: 14:06 ECG was reviewed by the Attending Physician. ms3 14:14 Neuro: Orientation: is normal, Mentation: able to follow commands, Memory: is normal, ms3 Cerebellar function: is grossly normal, Motor: is normal, Sensation: is normal, Gait: not tested. 14:59 Radiologist reports: Negative ms3 14:59 Constitutional: This is a well developed, well nourished patient who is awake, alert, and in no acute distress. 14:59 Neck: Trachea midline, no cervical lymphadenopathy. Supple, full range of motion without nuchal rigidity, or vertebral point tenderness. No Meningismus. Chest/axilla: Normal chest wall appearance and motion. Nontender with no deformity. Cardiovascular: Regular rate and rhythm with a normal S1 and S2. No gallops, murmurs, or rubs. Normal PMI, no JVD. No pulse deficits. Respiratory: Lungs have equal breath sounds bilaterally, clear to auscultation and percussion. No rales, rhonchi or wheezes noted. No increased work of breathing, no retractions or nasal flaring. Abdomen/GI: Soft, non-tender, with normal bowel sounds. No distension or tympany. No guarding or rebound. No evidence of tenderness throughout. Skin: Warm, dry with normal turgor. Normal color with no rashes, no lesions, and no evidence of cellulitis. MS/ Extremity: Pulses equal, no cyanosis. Neurovascular intact. Full, normal range of motion. Psych: Awake, alert, with orientation to person, place and time. Behavior, mood, and affect are within normal limits. 14:59 Head/face: Noted is L facial droop. Vital Signs: 14:06 BP 150 / 100; Pulse 120; Resp 17; Temp 98.1(O); Pulse Ox 100% on R/A; Weight 98.43 kg; ld1 Height 5 ft. 9 in. (175.26 cm); Pain 0/10; 15:02 BP 162 / 130; Pulse 124; Resp 16; Pulse Ox 97% on R/A; ld1 15:31 BP 138 / 105; Pulse 86; Resp 20; Pulse Ox 96% on R/A; ld1 15:34 BP 133 / 81; Pulse 84; Resp 29; Pulse Ox 96% on R/A; ld1 15:56 BP 133 / 81; Pulse 88; Resp 24; Pulse Ox 96% on R/A; ld1 14:06 Body Mass Index 32.04 (98.43 kg, 175.26 cm) ld1 NIH Stroke Scale Scores: 14:11 NIHSS Score: 4 ld1 14:14 NIHSS Score: 4 ms3 MDM: 13:54 Patient medically screened. ms3 14:14 Differential diagnosis: CVA, TIA, ICH. Data reviewed: vital signs, nurses notes, lab ms3 test result(s), radiologic studies, and as a result, I will Transfer secondary to capacity. Data interpreted: potline monitor: rate is 122 beats/min, rhythm is normal sinus rhythm, regular, with no ectopy, Interpretation: normal rate, normal rhythm. Counseling: I had a detailed discussion with the patient and/or guardian regarding: the historical points, exam findings, and any diagnostic results supporting the discharge/admit diagnosis, lab results, radiology results, the need to transfer to another facility, hospital at capacity. 15:15 ED course: Patient HTN and in a fib with RVR. Will give Cardizem for rate control. ms3 Discussed case with Dr Colon and would like CTA Head results. CTA head pending. 17:58 Test interpretation: by ED physician or midlevel provider: ECG. Special discussion:. ms3 02/03 13:53 Order name: Basic Metabolic Panel; Complete Time: 17:01 ms3 02/03 13:53 Order name: CBC with Diff; Complete Time: 14:56 ms3 02/03 13:53 Order name: Protime (+inr); Complete Time: 14:56 ms3 02/03 13:53 Order name: Ptt, Activated; Complete Time: 14:56 ms3 02/03 14:14 Order name: Glucose, Ancillary Testing; Complete Time: 14:56 EDMS 02/03 15:06 Order name: SARS RAPID; Complete Time: 17:01 bd 02/03 13:53 Order name: CT Stroke Brain w/o Contrast; Complete Time: 14:56 ms3 02/03 13:53 Order name: Stroke CXR 1 View; Complete Time: 15:08 ms3 02/03 13:53 Order name: EKG; Complete Time: 13:55 ms3 02/03 13:53 Order name: Accucheck; Complete Time: 14:06 ms3 02/03 13:55 Order name: CT Head Angio; Complete Time: 17:01 ms3 02/03 13:53 Order name: Cardiac monitoring; Complete Time: 14:06 ms3 02/03 13:53 Order name: EKG - Nurse/Tech; Complete Time: 14:06 ms3 02/03 13:53 Order name: IV Saline Lock; Complete Time: 14:06 ms3 02/03 13:53 Order name: Labs collected and sent; Complete Time: 14:06 ms3 02/03 13:53 Order name: NPO; Complete Time: 14:06 ms3 02/03 13:53 Order name: O2 Per Protocol; Complete Time: 14:06 ms3 02/03 13:53 Order name: O2 Sat Monitoring; Complete Time: 14:06 ms3 02/03 13:53 Order name: Stroke Swallow Screen; Complete Time: 14:40 ms3 EC:06 Rate is 128 beats/min. Rhythm is irregularly irregular. QRS [place] is Normal. MA interval ms3 is normal. QT interval is normal. Clinical impression: Atrial Fibrillation and with RVR. Interpreted by me. Reviewed by me. Administered Medications: 14:29 Drug: TNK FOR STROKE - Tenecteplase 0.25 mg/kg {Co-Signature: mc3 (Estrella Coleman ld1 RN).} Route: IV; Rate: per protocol; Site: left hand; 15:16 Not Given (Physician Discretion): niCARdipine 5 mg/hr IV at calculated rate See ld1 Administration Instructions; (Standard concentration 25 mg / 250 mL NS); Recommended max rate 15 mg/hr; Titrate 2.5 mg/hr as often as every 15 minutes to achieve goal (see titration policy); Goal parameter SBP less than 160 mmHg 15:26 Drug: Cardizem (diltiazem) 20 mg Route: IVP; Site: left hand; ld1 Point of Care Testing: Blood Glucose: 14:09 Blood Glucose: 75 mg/dL; ld1 Ranges: Critical Glucose Levels:Adult <50 mg/dl or >400 mg/dl <40 mg/dl or >180 mg/dl Disposition Summary: 02/03/22 15:36 Transfer Ordered Transfer Location: [facility] ms3 Reason: Higher level of care ms3 Condition: Stable ms3 Problem: new ms3 Symptoms: are unchanged ms3 Accepting Physician: Darlene(02/03/22 17:11) ld1 Diagnosis - Ischemic stroke ms3 - Atrial Fibrillation with RVR ms3 - Hypertension ms3 Forms: - Medication Reconciliation Form ms3 - SBAR form ms3 Critical care time excluding procedures: 15:15 Critical care time: Bedside Care: 35 minutes, Consultation: 10 minutes, Family ms3 Intervention: 10 minutes. Total time: 55 minutes NIH Stroke Scale - NIH Stroke Score Date: 02/03/2022 Time: 14:11 Total Score = 4 1a. Level of Consciousness (LOC) - 0(Alert) 1b. Level of Consciousness (LOC) (Month \T\ Age) - 0(Both) 1c. LOC Commands (Open \T\ Closes Eyes/Well Service Pump Equipment Operator) - 0(Both) 2. Best Gaze (Lateral Gaze Paresis) - 0(Normal) 3. Visual Field Loss - 1(Partial hemianopia) 4. Facial Palsy - 1(Minor Paralysis) 5a. Left Arm: Motor (10-second hold) - 0(No drift) 5b. Right Arm: Motor (10-second hold) - 0(No drift) 6a. Left Leg: Motor (5-second hold - always test supine) - 0(No drift) 6b. Right Leg: Motor (5-second hold - always test supine) - 0(No drift) 7. Limb Ataxia (finger/nose \T\ heel/galloway - test with eyes open) - 0(Absent) 8. Sensory Loss (pinprick arms/legs/face) - 0(Normal) 9. Best Language: Aphasia (description/naming/reading) - 0(No aphasia) 10. Dysarthria (speech clarity - read or repeat words) - 2(Severe) 11. Extinction and Inattention (visual/tactile/auditory/spatial/personal) - 0(No abnormality) Initials: ld1 NIH Stroke Scale - NIH Stroke Score Date: 02/03/2022 Time: 14:14 Total Score = 4 1a. Level of Consciousness (LOC) - 0(Alert) 1b. Level of Consciousness (LOC) (Month \T\ Age) - 0(Both) 1c. LOC Commands (Open \T\ Closes Eyes/Well Service Pump Equipment Operator) - 0(Both) 2. Best Gaze (Lateral Gaze Paresis) - 0(Normal) 3. Visual Field Loss - 1(Partial hemianopia) 4. Facial Palsy - 1(Minor Paralysis) 5a. Left Arm: Motor (10-second hold) - 0(No drift) 5b. Right Arm: Motor (10-second hold) - 0(No drift) 6a. Left Leg: Motor (5-second hold - always test supine) - 0(No drift) 6b. Right Leg: Motor (5-second hold - always test supine) - 0(No drift) 7. Limb Ataxia (finger/nose \T\ heel/galloway - test with eyes open) - 0(Absent) 8. Sensory Loss (pinprick arms/legs/face) - 0(Normal) 9. Best Language: Aphasia (description/naming/reading) - 0(No aphasia) 10. Dysarthria (speech clarity - read or repeat words) - 2(Severe) 11. Extinction and Inattention (visual/tactile/auditory/spatial/personal) - 0(No abnormality) Initials: ms3 Signatures: Dispatcher [employer] EDMS Roderick Moody DO DO ms3 Shaylee Stevens RN RN ld1 Estrella Coleman RN mc3 Corrections: (The following items were deleted from the chart) 15:20 14:09 Home Meds: unknown BP medication; ld1 ld1 15:20 14:09 Home Meds: Unknown; ld1 ld1 17:11 15:36 Darlene ms3 ld1
--- NOTE | 2022-02-03 15:36 | ER ---
Nurse's Notes [facility] Name: Thaddeus Rivers Age: 67 yrs Sex: Male : 1955 Arrival Date: 02/03/2022 Time: 13:38 Bed 26 Private MD: Diagnosis: Ischemic stroke;Atrial Fibrillation with RVR;Hypertension Presentation: 02/03 14:06 Chief complaint: Patient states: Pt reports slurred speech began today at 1230. Pt ld1 reports being on blood thinners. Coronavirus screen: At this time, the client does not indicate any symptoms associated with coronavirus-19. Ebola Screen: No symptoms or risks identified at this time. An acute neurological deficit is present. Initial Sepsis Screen: Does the patient meet any 2 criteria? No. Patient's initial sepsis screen is negative. Does the patient have a suspected source of infection? No. Patient's initial sepsis screen is negative. Risk Assessment: Do you want to hurt yourself or someone else? Patient reports no desire to harm self or others. Onset of symptoms was February 03, 2022. 14:06 Method Of Arrival: Ambulatory ld1 14:06 Acuity: MAXIM 2 ld1 Triage Assessment: 14:09 The onset of the patients symptoms was February 03, 2022 at 14:09. General: Appears in no ld1 apparent distress. comfortable, Behavior is calm, cooperative, appropriate for age. Pain: Denies pain. EENT: No signs and/or symptoms were reported regarding the EENT system. Neuro: Level of Consciousness is awake, alert, obeys commands, Oriented to person, place, time, situation, Assembler Lay Ups are equal bilaterally Moves all extremities. Gait is unsteady, Speech is slurred, Facial symmetry appears normal, Pupils are PERRLA, Intact Babinski is positive Reports weakness in right leg and left leg. Cardiovascular: Capillary refill < 3 seconds Patient's skin is warm and dry. Rhythm is sinus tachycardia. Respiratory: Airway is patent Respiratory effort is even, unlabored. GI: Abdomen is round non-distended. : No signs and/or symptoms were reported regarding the genitourinary system. Derm: No signs and/or symptoms reported regarding the dermatologic system. Musculoskeletal: No signs and/or symptoms reported regarding the musculoskeletal system. Stroke Activation: Symptom onset < 3 hours Physician: Stroke Attending; Name: ; Notified At: 13:50; Arrived At: Physician: Chief Stroke Resident; Name: ; Notified At: 13:50; Arrived At: Physician: Stroke Resident; Name: ; Notified At: 13:50; Arrived At: Physician: ED Attending; Name: ; Notified At: 13:50; Arrived At: Physician: ED Resident; Name: ; Notified At: 13:50; Arrived At: Historical: - Allergies: 14:09 No Known Allergies; ld1 - Home Meds: 15:19 lisinopril 20 mg Oral tab 1 tab once daily [Active]; glipizide 10 mg Oral tab 1 tab 2 ld1 times per day [Active]; metformin 500 mg Oral tab 1 tab 2 times per day [Active]; Rhopressa [Active]; potassium chloride 20 mEq Oral TbER 1 tab once daily [Active]; - PMHx: 14:09 diabetes mellitus; Hypertensive disorder; ld1 - PSHx: 14:09 None; ld1 - Immunization history:: Adult Immunizations up to date, Client reports receiving the 2nd dose of the Covid vaccine. - Social history:: Smoking status: Patient denies any tobacco usage or history of. Patient/guardian denies using alcohol. Screenin:11 Abuse screen: Denies threats or abuse. Denies injuries from another. Nutritional ld1 screening: No deficits noted. Tuberculosis screening: No symptoms or risk factors identified. Fall Risk None identified. Assessment: 14:11 VAN Scoring: Arm Drift: Patients demonstrates NO arm weakness. Patient is VAN Negative. ld1 Patient has been NPO before screening. The patient is alert, and able to follow commands. The patient exhibits slurred or garbled speech. The patient is not exhibiting difficulty speaking. The patient does not exhibit difficulty understanding words. The patient is able to swallow own secretions with no drooling or need for suction. Patient tolerated one teaspoon of water. No drooling, immediate coughing, gurgling, or clearing of the throat was noted. The patient tolerated 90mL of water. No drooling, immediate coughing, gurgling, or clearing of the throat was noted. The patient passed the bedside swallow screening. Oral medications may be given as ordered. Contact Physician for further diet orders. Provider notified of bedside swallow screening results: Roderick Moody DO. TNKase (Tenecteplase) Screening: Indications: Treatment will start within 4.5 hours onset of symptoms: Yes. Consent for thrombolytic therapy: Yes. 16:42 Reassessment: Sister - contact information - Tiara Jett - [phone]. ld1 Vital Signs: 14:06 BP 150 / 100; Pulse 120; Resp 17; Temp 98.1(O); Pulse Ox 100% on R/A; Weight 98.43 kg; ld1 Height 5 ft. 9 in. (175.26 cm); Pain 0/10; 15:02 BP 162 / 130; Pulse 124; Resp 16; Pulse Ox 97% on R/A; ld1 15:31 BP 138 / 105; Pulse 86; Resp 20; Pulse Ox 96% on R/A; ld1 15:34 BP 133 / 81; Pulse 84; Resp 29; Pulse Ox 96% on R/A; ld1 15:56 BP 133 / 81; Pulse 88; Resp 24; Pulse Ox 96% on R/A; ld1 14:06 Body Mass Index 32.04 (98.43 kg, 175.26 cm) ld1 NIH Stroke Scale Scores: 14:11 NIHSS Score: 4 ld1 14:14 NIHSS Score: 4 ms3 ED Course: 13:38 Patient arrived in ED. am2 13:46 Roderick Moody DO is Attending Physician. ms3 13:53 Shaylee Stevens, RN is Primary Nurse. ld1 13:58 CT Stroke Brain w/o Contrast In Process Unspecified. EDMS 14:09 Triage completed. ld1 14:09 Arm band placed on right wrist. EKG completed in triage. Results shown to MD. ld1 14:11 Patient has correct armband on for positive identification. Placed in gown. Bed in low ld1 position. Call light in reach. Side rails up X2. environmental monitoring specialist on. Pulse ox on. NIBP on. Door closed. Noise minimized. Warm blanket given. 14:11 No provider procedures requiring assistance completed. ld1 14:52 Stroke CXR 1 View In Process Unspecified. EDMS 15:42 initiated transfer to [facility], pt accepted in transfer by dr hirzallah, bd admin approval given by Gilbert Aguirre. 16:46 CT Head Angio In Process Unspecified. EDMS 17:11 Patient transferred, IV remains in place. ld1 Administered Medications: 14:29 Drug: TNK FOR STROKE - Tenecteplase 0.25 mg/kg {Co-Signature: mc3 (Estrella Coleman ld1 RN).} Route: IV; Rate: per protocol; Site: left hand; 15:16 Not Given (Physician Discretion): niCARdipine 5 mg/hr IV at calculated rate See ld1 Administration Instructions; (Standard concentration 25 mg / 250 mL NS); Recommended max rate 15 mg/hr; Titrate 2.5 mg/hr as often as every 15 minutes to achieve goal (see titration policy); Goal parameter SBP less than 160 mmHg 15:26 Drug: Cardizem (diltiazem) 20 mg Route: IVP; Site: left hand; ld1 Medication: 14:11 VIS not applicable for this client. ld1 Point of Care Testing: Blood Glucose: 14:09 Blood Glucose: 75 mg/dL; ld1 Ranges: Outcome: 15:36 ER care complete, transfer ordered by . ms3 17:10 Transferred by ground EMS ld1 17:10 Condition: stable 17:10 Discharge instructions given to EMS, Instructed on the need for transfer. 17:11 Patient left the ED. ld1 NIH Stroke Scale - NIH Stroke Score Date: 02/03/2022 Time: 14:11 Total Score = 4 1a. Level of Consciousness (LOC) - 0(Alert) 1b. Level of Consciousness (LOC) (Month \T\ Age) - 0(Both) 1c. LOC Commands (Open \T\ Closes Eyes/Bumper Operator) - 0(Both) 2. Best Gaze (Lateral Gaze Paresis) - 0(Normal) 3. Visual Field Loss - 1(Partial hemianopia) 4. Facial Palsy - 1(Minor Paralysis) 5a. Left Arm: Motor (10-second hold) - 0(No drift) 5b. Right Arm: Motor (10-second hold) - 0(No drift) 6a. Left Leg: Motor (5-second hold - always test supine) - 0(No drift) 6b. Right Leg: Motor (5-second hold - always test supine) - 0(No drift) 7. Limb Ataxia (finger/nose \T\ heel/galloway - test with eyes open) - 0(Absent) 8. Sensory Loss (pinprick arms/legs/face) - 0(Normal) 9. Best Language: Aphasia (description/naming/reading) - 0(No aphasia) 10. Dysarthria (speech clarity - read or repeat words) - 2(Severe) 11. Extinction and Inattention (visual/tactile/auditory/spatial/personal) - 0(No abnormality) Initials: ld1 NIH Stroke Scale - NIH Stroke Score Date: 02/03/2022 Time: 14:14 Total Score = 4 1a. Level of Consciousness (LOC) - 0(Alert) 1b. Level of Consciousness (LOC) (Month \T\ Age) - 0(Both) 1c. LOC Commands (Open \T\ Closes Eyes/Bumper Operator) - 0(Both) 2. Best Gaze (Lateral Gaze Paresis) - 0(Normal) 3. Visual Field Loss - 1(Partial hemianopia) 4. Facial Palsy - 1(Minor Paralysis) 5a. Left Arm: Motor (10-second hold) - 0(No drift) 5b. Right Arm: Motor (10-second hold) - 0(No drift) 6a. Left Leg: Motor (5-second hold - always test supine) - 0(No drift) 6b. Right Leg: Motor (5-second hold - always test supine) - 0(No drift) 7. Limb Ataxia (finger/nose \T\ heel/galloway - test with eyes open) - 0(Absent) 8. Sensory Loss (pinprick arms/legs/face) - 0(Normal) 9. Best Language: Aphasia (description/naming/reading) - 0(No aphasia) 10. Dysarthria (speech clarity - read or repeat words) - 2(Severe) 11. Extinction and Inattention (visual/tactile/auditory/spatial/personal) - 0(No abnormality) Initials: ms3 Signatures: Dispatcher [employer] EDMS Constanza Celis Amanda am2 Sims, Marcus, DO DO ms3 Shaylee Stevens RN RN ld1 Estrella Coleman RN mc3 Corrections: (The following items were deleted from the chart) 15:20 14:09 Home Meds: unknown BP medication; ld1 ld1 15:20 14:09 Home Meds: Unknown; ld1 ld1
[2022-02-03 15:59] LABS: SARS-CoV-2 Antigen Rapid Res Negative (Negative)
--- NOTE | 2022-02-03 16:56 | RAD REPORT ---
EXAM DESCRIPTION: CTHead angio02/03/2022 4:44 pm CLINICAL HISTORY: Slurred speech COMPARISON: None TECHNIQUE: CT angiogram of the head was obtained. 3D MIPS reconstruction performed. All CT scans are performed using dose optimization technique as appropriate and may include automated exposure control or mA/KV adjustment according to patient size. FINDINGS: Mild calcified plaque within the distal internal carotid arteries. The basilar,, anterior cerebral, middle cerebral and posterior cerebral arteries are normal caliber. An aneurysm is not seen. A significant stenosis is not noted. IMPRESSION: No significant abnormality is displayed
[2022-02-03 17:18] VITALS: TEMP 98.1
[2022-02-03 17:23] VITALS: O2SAT 96
[2022-02-03 17:25] VITALS: BP 133/81
--- NOTE | 2022-02-04 08:14 | EKG ---
Test Date: 2022-02-03 Test Time: 14:06:26 Coordinator Of Evaluation: LAMONTE MEASUREMENT RESULTS: Intervals: Rate: 128 NV: QRSD: 78 QT: 320 QTc: 467 [place]: P: NV: QRS: 64 T: 69 INTERPRETIVE STATEMENTS: Atrial fibrillation with rapid ventricular response with premature ventricular or aberrantly conducted complexes Nonspecific T wave abnormality, probably digitalis effect Abnormal ECG No previous ECG available for comparison Electronically Signed On 02-04-22 08:11:11 CDT by Nain Sher
== END 2022-02-03 17:11 | disposition short-term general hospital (02) ==
LOC: ER 13:37
DX: I63.9 Cerebral infarction, unspecified (principal); I10 Essential (primary) hypertension; R29.704 NIHSS score 4; I48.19 Other persistent atrial fibrillation; E11.9 Type 2 diabetes mellitus without complications; Z20.822 Contact with and (suspected) exposure to COVID-19
CPT/HCPCS: 85025; 80048; 36415; 85610; 82947; 85730; 70496; 70450; 71045; 87811; Q9967; J3101; 92977; 93005; 96374; 96375; 99291